=== PATIENT | female | born 1960 | race Hispanic/Latino ===

== ENCOUNTER 2018-12-19 08:48 | Outpatient (CLI) | payer OTHER ==
--- NOTE | 2018-12-19 09:43 | XRay Report ---
LUMBOSACRAL SPINE, 3 VIEWS INDICATION: Back pain. COMPARISON: None. IMPRESSION: Normal alignment. Mild to moderate discogenic disc disease is identified at L1-2, L2-3, L4-5 and L5-S1. Minimal diffuse facet arthropathy is also identified. The sacrum and SI joints are u nremarkable. No acute osseous or soft tissue abnormality. BILATERAL KNEES, 2 VIEWS INDICATION: BILATERAL KNEE PAIN. COMPARISON: None. IMPRESSION: No acute osseous or soft tissue abnormality. Mild osteoarthritic changes are identifi ed in the medial compartment and patellofemoral space of the left knee. Moderate to severe osteoarthr itic changes are identified in the medial compartment and patellofemoral space of the right knee. Sma ll left knee effusion and large right knee effusion are also identified. Signer Name: Oren Maria Jr, MD Signed: 12/19/2018 9:38 AM Workstation Name: [id number]
[2018-12-19] MEDS ORDERED: ALBUTEROL 2.5 MG/3 ML NEBU IH ONE (10:35)
== END 2018-12-19 08:49 | disposition home or self-care (01) ==
LOC: PF 08:48
PROVIDERS: ATTEND Internal Medicine
DX: J44.9 Chronic obstructive pulmonary disease, unspecified (principal)
CPT/HCPCS: 72100; 94060; 94640